=== PATIENT | male | born 1960 | race African-American/Black ===

== ENCOUNTER 2016-12-20 14:04 | Emergency (ER) | payer OTHER ==
[~2016-12-20] VITALS: Ht 182.9 cm; Wt 83.9 kg
[2016-12-20 14:48] VITALS: BP 147/93
[2016-12-20] MEDS ORDERED: HYDR-4452 PO (14:52)
--- NOTE | 2016-12-20 15:15 | NUR ---
PATIENT LEFT WITHOUT BEING SEEN BY DR. ALSTON. NO FURTHER CARE PROVIDED FOR PATIENT.
== END 2016-12-20 15:15 | disposition left against medical advice (07) ==
LOC: MED 14:04
DX: R11.10 Vomiting, unspecified (principal); Z53.21 Procedure and treatment not carried out due to patient leaving prior to being seen by health care provider

== ENCOUNTER 2022-12-06 16:49 | Inpatient (IN) | payer OTHER ==
[~2022-12-06] VITALS: Ht 177.8 cm; Wt 74.4 kg
[~2022-12-06 16:49] MED LIST: HYDR-5191 PO
[2022-12-06 16:57] VITALS: BP 145/90; PULSE 79; RESP 18; TEMP 97.4; O2SAT 97
[2022-12-06] MEDS ORDERED: NACL 0.9% 1,000 ML IV SCH (17:10)
[2022-12-06] MEDS ORDERED: ONDANSETRON 4 MG/2 ML VIAL IVP ONE ×2 (17:15→20:10)
--- NOTE | 2022-12-06 17:17 | NUR ---
FARZANA/ FLU SWABS SENT
--- NOTE | 2022-12-06 17:30 | NUR ---
62YO M PRESENTS N,V,D SINCE THIS AM, PT STATES HE'S DETOXING FROM [facility] SINCE YESTERDAY. AOX4, SAFETY MAINTAINED. HX:HTN NKA
[2022-12-06] MEDS ORDERED: buprenorphine HCL 2 MG sublingual tab SL ONE ×2 (18:20→20:10)
[2022-12-06 18:34] LABS: BASOPHILS % (AUTO) 0.6 % (0.0-2.0); EOSINOPHILS % (AUTO) 0.1 % (0.0-4.0); HEMATOCRIT 46.4 % (36-52); HEMOGLOBIN 15.6 g/dL (12.0-18.0); LYMPHOCYTES # (AUTO) 1.6 K/uL (2.0-11.5); LYMPHOCYTES % (AUTO) 21.7 % (20.5-51.1); MEAN CORPUSCULAR HEMOGLOBIN 31 pg (27-31); MEAN CORPUSCULAR HGB CONC 34 g/dL (33-37); MEAN CORPUSCULAR VOLUME 90.8 fL (80-94); MONOCYTES # (AUTO) 0.5 K/uL (0.8-1.0); MONOCYTES % (AUTO) 7.3 % (1.7-9.3); NEUTROPHILS # (AUTO) 5.3 K/uL (1.8-7.7); NEUTROPHILS % (AUTO) 70.3 % (42.2-75.2); PLATELET COUNT (AUTO) 229 K/uL (140-450); RED BLOOD CELL COUNT(AUTO) 5.11 MIL/uL (4.20-6.10); RED CELL DISTRIBUTION WIDTH 13.3 % (11.6-13.7); WHITE BLOOD COUNT (AUTO) 7.5 K/uL (4.8-10.8)
[2022-12-06 18:47] LABS: ANION GAP 17.6 (8-16); CARBON DIOXIDE 24.8 mmol/L (21-32); POTASSIUM 3.4 mmol/L (3.5-5.1); TOTAL BILIRUBIN 1.1 mg/dL (0.0-1.0)
[2022-12-06 18:54] LABS: ACETAMINOPHEN < 0.5 ug/ml (10-30); LIPASE 45 U/L (73-393)
--- NOTE | 2022-12-06 19:14 | NUR ---
SPOKE TO DAUGHTER , SHE WILL COME VISTI PT LATER.
--- NOTE | 2022-12-06 19:18 | NUR ---
13YO F BIB MOTHER, PRESENTS W/ABSCESS TO LT BUTTOCKS X 4 DAYS. SMALL PUNCTURES NOTED W/CLEAR DRAINAGE, NO DISTRESS NOTED, PT DENIES FEVER, N,V,D CHILLS, WEAKNESS. AOX4, SAFETY MAINTAINED. NKA
--- NOTE | 2022-12-06 19:25 | NUR ---
pt. resting on bed, not in distress, A/oX4
[2022-12-06] MEDS ORDERED: NACL 0.9% 1,000 ML IV ONE (20:10)
--- NOTE | 2022-12-06 20:10 | NUR ---
dr. montez examined thee patient
--- NOTE | 2022-12-06 20:11 | NUR ---
pt vomitted. placed on high back rest. provided vomiting bag. dr. Pugh made aware
--- NOTE | 2022-12-06 20:12 | NUR ---
Attempted to collect urine again, pt stated he is unable to pee at this time and c/o nausea vomiting. ERMD aware and orders were received.
--- NOTE | 2022-12-06 20:37 | NUR ---
Urine collected sent to lab
[2022-12-06] MEDS ORDERED: METOCLOPRAMIDE 10 MG/2 ML INJ VIAL IVP ONE (20:50)
[2022-12-06] MEDS ORDERED: diphenhydrAMINE 50 MG/ML VIAL IVP ONE ×3 (20:50→21:40)
--- NOTE | 2022-12-06 21:00 | NUR ---
pt seen restless. dr. Pugh made aware
[2022-12-06 21:17] LABS: BARBITURATE, URINE NEGATIVE ng/ml (NEG <=200)
[2022-12-06 21:18] LABS: BENZODIAZEPINE, URINE NEGATIVE ng/mL (NEG <=200); BILIRUBIN,URINE 2+ (NEGATIVE); BLOOD, URINE NEGATIVE (NEGATIVE); CANNABINOID, URINE POSITIVE ng/mL (NEG <=50); COCAINE, URINE NEGATIVE ng/mL (NEG <=300); COLOR,URINE YELLOW (YELLOW); LEUKOCYTE ESTERASE ,URINE TRACE (NEGATIVE); NITRITE, URINE NEGATIVE (NEGATIVE); OPIATE, URINE POSITIVE ng/mL (NEG <=2000); PH,URINE 6.5 (5.0-9.0); PHENCYCLIDINE SCREEN,URINE NEGATIVE ng/mL (NEG <=25); UGLUCOSE NEGATIVE (NEGATIVE)
[2022-12-06 21:19] LABS: APPEARANCE,URINE CLOUDY (CLEAR)
--- NOTE | 2022-12-06 21:29 | NUR ---
GAYATHRI [phone] CALLED REQUESTING UPDATE
[2022-12-06 21:33] LABS: RBC,URINE 0-5 /HPF (0-5)
--- NOTE | 2022-12-06 21:34 | NUR ---
Pt noted restless and stated they are feeling anxious. ERMD made aware orders received.
[2022-12-06] MEDS ORDERED: LORazepam 2 MG/ML VIAL IVP ONE (21:35)
--- NOTE | 2022-12-06 22:04 | NUR ---
resting on bed. on monitor
[2022-12-06] MEDS ORDERED: LISI-486 PO (22:17)
[2022-12-06] MEDS ORDERED: cefTRIAXone 2,000 MG in DEXTROSE 5% 100 ML IV ONE (22:20)
--- NOTE | 2022-12-06 23:07 | NUR ---
Per patient request, daughter , was made aware of patients admission.
[2022-12-06] MEDS ORDERED: cefTRIAXone 2,000 MG VIAL ONE (23:39)
[2022-12-07] MEDS ORDERED: ONDANSETRON 4 MG/2 ML VIAL IVP PRN (00:15)
[2022-12-07] MEDS ORDERED: MORPHINE SULFATE 2 MG/ML SYR IVP PRN (00:15)
[2022-12-07] MEDS ORDERED: LORazepam 2 MG/ML VIAL IVP PRN (00:15)
[2022-12-07] MEDS ORDERED: ACETAMINOPHEN 325 MG TAB PO PRN (00:15)
[2022-12-07] MEDS: NACL 0.9% 1,000 ML IV SCH ×3 (01:10→22:00)
--- NOTE | 2022-12-07 01:24 | NUR ---
resting on bed. not in distress, on monitor
--- NOTE | 2022-12-07 07:24 | NUR ---
Pt report given to Galina GARSIA. Galina GARSIA verbalized understanding and no further question. . Transfer of care at this time.
--- NOTE | 2022-12-07 07:24 | NUR ---
REPORT RECEIVED FROM DANUTA PALAFOX.
[2022-12-07 07:44] VITALS: O2SAT 95
--- NOTE | 2022-12-07 07:48 | NUR ---
PT SLEEPING, BED ASSIGNMENT RECEIVED-120B MED/SURG.
--- NOTE | 2022-12-07 07:55 | NUR ---
REPORT GIVEN TO FERCHO PINEDA RN FOR MED/SURG 120B
[2022-12-07] MEDS ORDERED: MAG SULF 2000 MG/WATER PREMIX 50 ML IV PRN (08:15)
[2022-12-07] MEDS ORDERED: MAGNESIUM OXIDE 400 MG TAB PO PRN (08:15)
[2022-12-07] MEDS ORDERED: POTASSIUM CHLORIDE 10 MEQ TABER PO PRN (08:15)
--- NOTE | 2022-12-07 08:15 | NUR ---
Patient will be admitted to care of GLADYS IVAN MD. Admited to MED/SURG. Will go to room 120B. Belongings list completed. Report to FERCHO PINEDA RN.
[2022-12-07 08:17] VITALS: PULSE 60; RESP 15; O2SAT 95
--- NOTE | 2022-12-07 08:31 | NUR ---
The patient's care was reviewed and supervised by Jenkins 04 ED, RN.
[2022-12-07 08:48] LABS: BASOPHILS % (AUTO) 0.3 % (0.0-2.0); HEMATOCRIT 40.7 % (36-52); HEMOGLOBIN 13.6 g/dL (12.0-18.0); LYMPHOCYTES # (AUTO) 1.5 K/uL (2.0-11.5); LYMPHOCYTES % (AUTO) 17.1 % (20.5-51.1); MEAN CORPUSCULAR HEMOGLOBIN 30 pg (27-31); MEAN CORPUSCULAR HGB CONC 33 g/dL (33-37); MEAN CORPUSCULAR VOLUME 90.9 fL (80-94); MONOCYTES # (AUTO) 0.6 K/uL (0.8-1.0); MONOCYTES % (AUTO) 6.8 % (1.7-9.3); NEUTROPHILS # (AUTO) 6.5 K/uL (1.8-7.7); NEUTROPHILS % (AUTO) 75.8 % (42.2-75.2); PLATELET COUNT (AUTO) 192 K/uL (140-450); RED BLOOD CELL COUNT(AUTO) 4.48 MIL/uL (4.20-6.10); RED CELL DISTRIBUTION WIDTH 13.2 % (11.6-13.7); WHITE BLOOD COUNT (AUTO) 8.6 K/uL (4.8-10.8)
[2022-12-07 09:04] LABS: ALBUMIN 3.4 g/dL (3.4-5.0); ANION GAP 10.5 (8-16); CARBON DIOXIDE 29.2 mmol/L (21-32); CREATININE 0.7 mg/dL (0.6-1.3); POTASSIUM 3.7 mmol/L (3.5-5.1); TOTAL BILIRUBIN 0.6 mg/dL (0.0-1.0)
--- NOTE | 2022-12-07 10:21 | NUR ---
PATIENT HAS BEEN SCREENED AND CATEGORIZED LOW NUTRITION RISK. PATIENT WILL BE SEEN WITHIN 7 DAYS OF ADMISSION. 12/14/[address]
[2022-12-07] MEDS: lisinopriL 10 MG TAB PO SCH (10:32)
--- NOTE | 2022-12-07 11:27 | NUR ---
DC [age]ANN[age] YRS OLD MALE PATIENT WAS ADMITTED FROM HOME WITH A DX OF UTI AND POLYSUBSTANCE ABUSE. PATIENT HAS A HX OF DRUG USE AND HTN. CXR SHOWED BIBASILAR INTERSTITIAL INFILTRATES, UA +3. CXR NORMAL. CT ABD ABDOMINAL US SHOWED ECHOGENIC GALLSTONES AND SLUDGE NOTED IN THE GALLBLADDER . RAPID COVID TEST NEGATIVE. ADMINISTERED IVF, IV ABX ROCEPHIN. DC PLAN TO GO HOME WHEN STABLE. CM TO FOLLOW Addendum: 12/08/22 at 1125 by YANIV ROMERO CM CALLED DR HARJEET GILLIAM'S OFFICE LOCATED AT [facility] [address] [id number]. SPOKE WITH CESARIO WHO WAS ABLE TO HELP ME SCHEDULE A FOLLOW UP APPOINTMENT FOR 12/11/2022. WENT TO BEDSIDE TO GIVE PATIENT INFORMATION BUT PATIENT WAS ASLEEP BUT I INDORSED INFORMATION TO NURSE JANE WHO WAS ALSO GIVE AN APPOINTMENT SLIP TO GIVE TO PATIENT WITH ALL INFO ON IT. [facility] TRANSPORT NUMBER WAS ALSO PLACE ON APPOINTMENT SLIP.
--- NOTE | 2022-12-07 12:12 | NUR ---
Spoke with mother, Sendy Jose, this afternoon via telephone. She advised that the patient has participated in mental health services in the past, however he stopped attending because he felt like he didn't need services. Per mother, the had refered him to treatment to "help relax him". The mother states the patient has had a lot and trauma within his life and she could understand why he was in therapy. At this time, the patient is not receiving mental health services, and the focus is to work on his sobriety. The mother was provided resources related to mental health as well.
[2022-12-07 16:00] VITALS: BP 118/50; PULSE 55; RESP 16; TEMP 99; O2SAT 91
--- NOTE | 2022-12-07 18:30 | NUR ---
AROUND 1814, PT SMOKED CIGARETTE, INFORMED HIM THAT IT IS NOT ALLOWED AND WILL HAVE TO CONFISCATE THE CIGARETTE AND CURTAIN FRAMER UNTIL HE IS DISCHARGED. YOHANA OF SECURITY TOOK THE ITEMS FOR SAFE KEEPING. WILL ENDORSE TO NEXT SHIFT.
--- NOTE | 2022-12-07 19:14 | NUR ---
ENDORSED PT TO PEDIATRIC NEPHROLOGIST NURSE FOR CONTINUITY OF CARE. PT IS STABLE, CALL LIGHT WITHIN REACH.
--- NOTE | 2022-12-07 19:15 | NUR ---
RECEIVED REPORT FROM JEFF PALAFOX, PATIENT WAS STABLE DURING SHIFT REPORT. PATIENT IV TO LEFT FOREARM WAS INFILTRATED AND BROUGHT TO AM NURSE ATTENTION. PATIENT IN BED SLEEPING BUT RESPOND WHEN NAME IS CALLED. PATIENT DENIES ANY PAIN/DISCOMFORT AT THIS TIME. DID NOT EAT ANY OF HIS DINNER BUT REQUEST THAT TRAY NOT BE REMOVED TO ATTEMPT TO EAT LATER. PATIENT IS ABLE TO USE URINAL AND URINE COLOR NOTED DARK STRAW. SIDE RAILS UP X 2 CALL LIGHT WITHIN REACH. [email or web address]
[2022-12-07 20:00] VITALS: BP 134/67; PULSE 65; RESP 17; TEMP 98.6; O2SAT 94
[2022-12-07] MEDS: NICOTINE TRANSD SYS 14 MG/24 HR PATCH TD SCH (21:34)
--- NOTE | 2022-12-07 21:45 | NUR ---
STARTED NEW IV ON RIGHT ON AND ON FIRST ATTEMPT BY RESOURCE NURSE. [email or web address]
--- NOTE | 2022-12-08 01:50 | NUR ---
SPOKE WITH PATIENT MOTHER ABOUT VISITING HOURS AND GENERAL INFORMING TO HIS CARE. PATIENT WILL BE NOTIFIED OR HER CALL IN THE AM. [id number]
--- NOTE | 2022-12-08 03:45 | NUR ---
PATIENT WAS NOTED IN BED ASLEEP WITHOUT INCIDENT. AL NEEDS MET AT THIS TIME. NO S/S OF PAIN/DISCOMFORT. NO NOTED RESPIRATORY DISTRESS. SIDE RAILS UP X2 FOR SAFETY AND COMFORT. [email or web address]
[2022-12-08 04:00] VITALS: BP 138/61; PULSE 52; RESP 19; TEMP 98.6; O2SAT 95
[2022-12-08 05:26] LABS: BASOPHILS % (AUTO) 0.5 % (0.0-2.0); EOSINOPHILS % (AUTO) 0.1 % (0.0-4.0); HEMATOCRIT 40.8 % (36-52); HEMOGLOBIN 13.5 g/dL (12.0-18.0); LYMPHOCYTES # (AUTO) 2.3 K/uL (2.0-11.5); LYMPHOCYTES % (AUTO) 23.5 % (20.5-51.1); MEAN CORPUSCULAR HEMOGLOBIN 30 pg (27-31); MEAN CORPUSCULAR HGB CONC 33 g/dL (33-37); MEAN CORPUSCULAR VOLUME 91.1 fL (80-94); MONOCYTES # (AUTO) 0.8 K/uL (0.8-1.0); MONOCYTES % (AUTO) 8.4 % (1.7-9.3); NEUTROPHILS # (AUTO) 6.5 K/uL (1.8-7.7); NEUTROPHILS % (AUTO) 67.5 % (42.2-75.2); PLATELET COUNT (AUTO) 182 K/uL (140-450); RED BLOOD CELL COUNT(AUTO) 4.48 MIL/uL (4.20-6.10); RED CELL DISTRIBUTION WIDTH 13.4 % (11.6-13.7); WHITE BLOOD COUNT (AUTO) 9.7 K/uL (4.8-10.8)
[2022-12-08 05:27] LABS: ANION GAP 13.7 (8-16); CARBON DIOXIDE 26.2 mmol/L (21-32); CREATININE 0.8 mg/dL (0.6-1.3)
[2022-12-08 05:31] LABS: POTASSIUM 2.9 mmol/L (3.5-5.1)
--- NOTE | 2022-12-08 05:35 | NUR ---
LAB ([facility]) CALLED FOR PATIENT LAB LEVELS NOTED AT 2.9 FOR POTASSIUM. COVERING RN WAS NOTIFIED BECAUSE STANDING ORDER FOR K RIDER IS ABLE. [email or web address]
[2022-12-08] MEDS: NACL 0.9% 1,000 ML IV SCH ×2 (06:15→16:15)
[2022-12-08] MEDS: KCL 20 MEQ IN 100 mL PREMIX 200 ML IV PRN ×2 (06:19→10:27)
--- NOTE | 2022-12-08 07:04 | NUR ---
ENDORSED CONTINUITY OF CARE TO LUCINDA GARSIA, PATIENT WAS STABLE DURING CHANGE OF SHIFT. [email or web address]
--- NOTE | 2022-12-08 07:05 | NUR ---
ASSUMED CONTINUITY OF CARE. INITIAL ASSESSMENT DONE. KEEP COMFORTABLE ON BED. CALL LIGHT WITHIN REACH.
[2022-12-08 08:00] VITALS: BP 154/72; PULSE 52; RESP 17; TEMP 98.3; O2SAT 97
[2022-12-08] MEDS: lisinopriL 10 MG TAB PO SCH (08:39)
[2022-12-08] MEDS ORDERED: POTASSIUM CHLORIDE 10 MEQ TABER PO SCH ×2 (08:40→14:00)
[2022-12-08] MEDS: NICOTINE TRANSD SYS 14 MG/24 HR PATCH TD SCH (08:41)
[2022-12-08] MEDS ORDERED: NITR100C7 PO (09:31)
--- NOTE | 2022-12-08 09:31 | NUR ---
DR. SANTOS CAME AND SAID THAT PT. CAN BE D/C IF K > 3.2, REPEAT LAB AT 1600, MAG-OX 400 MG PO X1 FOR LOW MAG 1.6. INFORMED CHARGE NURSE KORINA -JAVY.
[2022-12-08] MEDS ORDERED: MAGNESIUM OXIDE 400 MG TAB PO SCH (09:36)
[2022-12-08 17:15] LABS: ANION GAP 13.1 (8-16); CARBON DIOXIDE 24.6 mmol/L (21-32); CREATININE 0.7 mg/dL (0.6-1.3); POTASSIUM 3.7 mmol/L (3.5-5.1)
--- NOTE | 2022-12-08 18:15 | NUR ---
PT. SAID THAT CELLPHONE (OBAMA PHONE) WAS LEFT IN RADIOLOGY DEPARTMENT ON 12/06/22 AFTER GALLBLADDER US. CALLED GLADYS FROM RADIOLOGY DEPARTMENT AND CHECKED PT. CELLPHONE. PER GLADYS NO CELLPHONE FOUND OR ANY CELLPHONE THAT WAS LEFT BY PT.. BILINGUAL SPEECH THERAPIST TANESHA SPOKE TO PT. AND FAMILY MEMBERS AND ASKED PT. INFORMATION TO CALL JUST IN CASE CELLPHONE FOUND AFTER PT. D/C. PT. INFORMATION AND CONTACT NUMBER WAS GIVEN TO BILINGUAL SPEECH THERAPIST TANESHA.
--- NOTE | 2022-12-08 19:26 | NUR ---
REPORT GIVEN TO SORIN SUAZO IN STABLE CONDITION. ALSO ENDORSED ABOUT PT. D/C.
--- NOTE | 2022-12-08 19:30 | NUR ---
RECEIVED REPORT FROM DAY SHIFT NURSE LUCINDA FOR CONTINUITY OF CARE. PATIENT IS A&O X4. PATIENT IS ON ROOM AIR, BREATHING IS NORMAL WITH SYMMETRICAL RISE AND FALL OF CHEST. PATIENT IS PENDING D/C PICKUP FROM SISTER; IV WAS REMOVED BY DAY SHIFT NURSE. PATIENT IS SLEEPING IN BED, LYING SUPINE; WAITING FOR PICKUP.
--- NOTE | 2022-12-08 20:00 | NUR ---
PATIENT'S SISTER CALLED AND STATED SHE WOULD BE THEIR TO PICKUP PATIENT IN 5 MINUTES. WOKE PATIENT UP AND INFORMED HIM THAT HIS SISTER WAS ON HER WAY. PLACED PATIENT IN WHEELCHAIR AND GAVE HIM HIS CIGARETTES, [employer] ARCHITECT, TWO CANES (BROWN CANE AND BLACK CANE), AND D/C PAPERWORK. WHEELED PATIENT TO [place] AND WAITED FOR SISTER TO ARRIVE. ONCE SISTER ARRIVED, ASSISTED PATIENT OUT OF CHAIR AND INTO CAR. PATIENT LEFT WITH SISTER AT 1950 AND IS NOW D/C.
== END 2022-12-08 19:50 | disposition home or self-care (01) | DRG 463 ==
LOC: MED 16:49 → MMU 12-07 00:18 → MTU 12-07 00:18 → OBSVTOIN 12-07 01:44 → MMU 12-07 01:44 → MTU 12-07 08:26
PROVIDERS: ADMIT Hospitalist; ATTEND Hospitalist
DX: N39.0 Urinary tract infection, site not specified (principal); G25.71 Drug induced akathisia; E87.6 Hypokalemia; K80.20 Calculus of gallbladder without cholecystitis without obstruction; F11.13 Opioid abuse with withdrawal; I10 Essential (primary) hypertension; F17.200 Nicotine dependence, unspecified, uncomplicated; Z20.822 Contact with and (suspected) exposure to COVID-19
CPT/HCPCS: 36415; 71045; 76705; 80048; 80053; 80305; 81001; 83690; 83735; 83880; 84484; 85025; 87040; 87081; 87086; 93005; 96361; 96365; 96375; 96376; 99285; G0480; G0482; J0696; J1200; J2060; J2405; J2765; J3480; J7060; Q0092

== ENCOUNTER 2023-04-25 13:01 | Emergency (ER) | payer OTHER ==
[~2023-04-25] VITALS: Ht 182.9 cm; Wt 79.4 kg
[~2023-04-25 13:01] MED LIST changes: -HYDR-5191 PO; +LISI-486 PO; +NITR100C7 PO
[2023-04-25 13:05] VITALS: BP 138/88; PULSE 70; RESP 20; TEMP 98; O2SAT 95
[2023-04-25 13:18] VITALS: BP 130/84; PULSE 66; RESP 20; TEMP 98; O2SAT 99
[2023-04-25] MEDS ORDERED: NACL 0.9% 1,000 ML IV ONE (13:25)
[2023-04-25] MEDS ORDERED: ONDA8TAB87 PO (14:05)
[2023-04-25] MEDS ORDERED: ONDANSETRON 4 MG/2 ML VIAL IVP ONE (14:05)
== END 2023-04-25 14:39 | disposition home or self-care (01) ==
LOC: MED 13:01
DX: T50.994A Poisoning by other drugs, medicaments and biological substances, undetermined, initial encounter (principal); R00.2 Palpitations; R42 Dizziness and giddiness; I10 Essential (primary) hypertension; F17.200 Nicotine dependence, unspecified, uncomplicated; F12.90 Cannabis use, unspecified, uncomplicated; Z98.890 Other specified postprocedural states; Z79.899 Other long term (current) drug therapy; Z79.2 Long term (current) use of antibiotics; Y92.89 Other specified places as the place of occurrence of the external cause
CPT/HCPCS: 93005; 96361; 96374; 99283; J2405

== ENCOUNTER 2023-04-29 18:15 | Inpatient (IN) | payer OTHER ==
[~2023-04-29] VITALS: Ht 182.9 cm; Wt 79.4 kg
[~2023-04-29 18:15] MED LIST changes: +ONDA8TAB87 PO
[2023-04-29 18:20] VITALS: BP 139/80; PULSE 65; RESP 16; O2SAT 97
[2023-04-29 19:41] VITALS: O2SAT 97
[2023-04-29 19:55] LABS: BASOPHILS % (AUTO) 0.2 % (0.0-2.0); EOSINOPHILS % (AUTO) 0.2 % (0.0-4.0); HEMATOCRIT 44.5 % (36-52); HEMOGLOBIN 15.1 g/dL (12.0-18.0); LYMPHOCYTES # (AUTO) 2.3 K/uL (2.0-11.5); LYMPHOCYTES % (AUTO) 21.3 % (20.5-51.1); MEAN CORPUSCULAR HEMOGLOBIN 31 pg (27-31); MEAN CORPUSCULAR HGB CONC 34 g/dL (33-37); MONOCYTES # (AUTO) 1.1 K/uL (0.8-1.0); MONOCYTES % (AUTO) 10.4 % (1.7-9.3); NEUTROPHILS # (AUTO) 7.4 K/uL (1.8-7.7); NEUTROPHILS % (AUTO) 67.9 % (42.2-75.2); PLATELET COUNT (AUTO) 215 K/uL (140-450); RED BLOOD CELL COUNT(AUTO) 4.95 MIL/uL (4.20-6.10); RED CELL DISTRIBUTION WIDTH 12.6 % (11.6-13.7); WHITE BLOOD COUNT (AUTO) 10.9 K/uL (4.8-10.8)
[2023-04-29 20:16] LABS: ALANINE AMINOTRANSFERASE 31 U/L (12-78); ALBUMIN 3.5 g/dL (3.4-5.0); ALKALINE PHOSPHATASE 63 U/L (50-136); ANION GAP 10.3 (8-16); ASPARTATE AMINOTRANSFERASE 28 U/L (15-37); CALCIUM 8.5 mg/dL (8.5-10.1); CARBON DIOXIDE 30.7 mmol/L (21-32); CHLORIDE 96 mmol/L (98-107); CREATININE 0.9 mg/dL (0.6-1.3); GFR ARICAN-AMERICAN 110 mL/min (>90); GFR NON ARICAN-AMERICAN 91 mL/min (>90); GLUCOSE 94 mg/dL (74-106); LIPASE 101 U/L (16-77); SODIUM SERUM 135 mmol/L (136-145); TOTAL BILIRUBIN 0.9 mg/dL (0.0-1.0); TOTAL PROTEIN, SERUM 6.9 g/dL (6.4-8.2); UREA NITROGEN, BLOOD 10 mg/dL (7-18)
[2023-04-29] MEDS ORDERED: LACTATED RINGERS 1,000 ML IV STA (20:26)
[2023-04-29] MEDS ORDERED: KCL 20 MEQ IN 100 mL PREMIX 200 ML IV ONE (20:30)
[2023-04-29] MEDS ORDERED: MAG SULF 2000 MG/WATER PREMIX 50 ML IV ONE (20:30)
[2023-04-29] MEDS ORDERED: POTASSIUM CHLORIDE 20% 40 MEQ/15 ML UDC PO ONE ×2 (20:30)
[2023-04-29] MEDS ORDERED: METOCLOPRAMIDE 10 MG/2 ML INJ VIAL IVP ONE (20:45)
[2023-04-29] MEDS ORDERED: POTASSIUM CHLORIDE 10 MEQ TABER PO ONE (21:00)
[2023-04-29 21:46] LABS: FLU A ANTIGEN negative (NEGATIVE); FLU B ANTIGEN negative (NEGATIVE)
[2023-04-29] MEDS ORDERED: MAGNESIUM OXIDE 400 MG TAB PO PRN (22:05)
[2023-04-29] MEDS ORDERED: LORazepam 1 MG TAB PO PRN (22:05)
[2023-04-29] MEDS ORDERED: ACETAMINOPHEN 325 MG TAB PO PRN (22:05)
[2023-04-29] MEDS ORDERED: MAG SULF 2000 MG/WATER PREMIX 50 ML IV PRN (22:05)
[2023-04-29] MEDS ORDERED: ZOLPIDEM 5 MG TAB PO PRN (22:05)
[2023-04-29] MEDS ORDERED: KCL 20 MEQ IN 100 mL PREMIX 200 ML IV PRN (22:05)
[2023-04-29] MEDS ORDERED: ONDANSETRON 4 MG/2 ML VIAL IVP PRN (22:05)
[2023-04-29] MEDS ORDERED: POTASSIUM CHLORIDE 10 MEQ TABER PO PRN (22:05)
[2023-04-29] MEDS ORDERED: ONDA-188 SL (23:03)
[2023-04-29] MEDS: POTASSIUM CHL 20 MEQ/NACL 0.9% 1,000 ML IV SCH (23:55)
[2023-04-29 23:58] LABS: ANION GAP 9.7 (8-16); CALCIUM 8.3 mg/dL (8.5-10.1); CARBON DIOXIDE 30.2 mmol/L (21-32); CREATININE 0.9 mg/dL (0.6-1.3)
[2023-04-30] VITALS (7 sets, daily range): BP systolic 125–157; BP diastolic 47–75; PULSE 49–60; RESP 18–19; TEMP 99.1–99.9; O2SAT 94–99
[2023-04-30 00:01] LABS: POTASSIUM 2.9 mmol/L (3.5-5.1)
[2023-04-30] MEDS: HYDROcodone/APAP 5/325 MG 1 TAB TAB PO PRN ×2 (03:26→14:13)
[2023-04-30 06:49] LABS: BASOPHILS % (AUTO) 0.4 % (0.0-2.0); EOSINOPHILS % (AUTO) 0.2 % (0.0-4.0); HEMATOCRIT 42.5 % (36-52); HEMOGLOBIN 14.6 g/dL (12.0-18.0); LYMPHOCYTES # (AUTO) 2.1 K/uL (2.0-11.5); MEAN CORPUSCULAR HEMOGLOBIN 31 pg (27-31); MEAN CORPUSCULAR HGB CONC 34 g/dL (33-37); MEAN CORPUSCULAR VOLUME 90.1 fL (80-94); MONOCYTES % (AUTO) 9.9 % (1.7-9.3); NEUTROPHILS # (AUTO) 7.2 K/uL (1.8-7.7); NEUTROPHILS % (AUTO) 69.5 % (42.2-75.2); PLATELET COUNT (AUTO) 208 K/uL (140-450); RED BLOOD CELL COUNT(AUTO) 4.72 MIL/uL (4.20-6.10); RED CELL DISTRIBUTION WIDTH 12.6 % (11.6-13.7); WHITE BLOOD COUNT (AUTO) 10.4 K/uL (4.8-10.8)
[2023-04-30 07:52] LABS: ALBUMIN 3.2 g/dL (3.4-5.0); CALCIUM 8.2 mg/dL (8.5-10.1); CARBON DIOXIDE 26.4 mmol/L (21-32); CREATININE 0.8 mg/dL (0.6-1.3); PHOSPHORUS 2.5 mg/dL (2.5-4.9); POTASSIUM 3.4 mmol/L (3.5-5.1); TOTAL PROTEIN, SERUM 6.5 g/dL (6.4-8.2)
[2023-04-30] MEDS: ENOXAPARIN 40 MG/0.4 ML SYR SUBQ SCH (09:21)
[2023-04-30] MEDS: DOCUSATE SODIUM 100 MG GELCAP PO SCH (09:25)
[2023-04-30] MEDS ORDERED: LOPERAMIDE 2 MG CAP PO PRN (11:00)
[2023-04-30] MEDS: POTASSIUM CHL 20 MEQ/NACL 0.9% 1,000 ML IV SCH (22:10)
[2023-05-01] VITALS: BP 105/53; PULSE 57; PULSE 60; RESP 18; TEMP 98.6; O2SAT 95
[2023-05-01 04:00] VITALS: BP 111/55; PULSE 62; RESP 18; TEMP 99.1; O2SAT 93
[2023-05-01 06:52] LABS: BASOPHILS % (AUTO) 0.5 % (0.0-2.0); EOSINOPHILS # (AUTO) 0.1 K/uL (0-0.4); EOSINOPHILS % (AUTO) 0.6 % (0.0-4.0); HEMATOCRIT 41.6 % (36-52); HEMOGLOBIN 13.9 g/dL (12.0-18.0); LYMPHOCYTES # (AUTO) 2.1 K/uL (2.0-11.5); LYMPHOCYTES % (AUTO) 22.2 % (20.5-51.1); MEAN CORPUSCULAR HEMOGLOBIN 30 pg (27-31); MEAN CORPUSCULAR HGB CONC 33 g/dL (33-37); MEAN CORPUSCULAR VOLUME 90.7 fL (80-94); MONOCYTES # (AUTO) 0.7 K/uL (0.8-1.0); MONOCYTES % (AUTO) 7.8 % (1.7-9.3); NEUTROPHILS # (AUTO) 6.5 K/uL (1.8-7.7); NEUTROPHILS % (AUTO) 68.9 % (42.2-75.2); PLATELET COUNT (AUTO) 203 K/uL (140-450); RED BLOOD CELL COUNT(AUTO) 4.58 MIL/uL (4.20-6.10); RED CELL DISTRIBUTION WIDTH 12.7 % (11.6-13.7); WHITE BLOOD COUNT (AUTO) 9.5 K/uL (4.8-10.8)
[2023-05-01 07:16] LABS: ANION GAP 9.6 (8-16); CALCIUM 7.8 mg/dL (8.5-10.1); CARBON DIOXIDE 28.5 mmol/L (21-32); CREATININE 0.8 mg/dL (0.6-1.3); POTASSIUM 3.1 mmol/L (3.5-5.1); TOTAL BILIRUBIN 0.8 mg/dL (0.0-1.0); TOTAL PROTEIN, SERUM 6.1 g/dL (6.4-8.2)
[2023-05-01 08:00] VITALS: BP 107/55; PULSE 55; PULSE 56; RESP 18; TEMP 99.2; O2SAT 93; O2SAT 98
[2023-05-01] MEDS: DOCUSATE SODIUM 100 MG GELCAP PO SCH (08:26)
[2023-05-01] MEDS: ENOXAPARIN 40 MG/0.4 ML SYR SUBQ SCH (08:30)
[2023-05-01 12:24] VITALS: PULSE 58
[2023-05-01 12:25] VITALS: BP 137/73; PULSE 57; RESP 18; TEMP 99.2; O2SAT 98
[2023-05-01] MEDS: POTASSIUM CHL 20 MEQ/NACL 0.9% 1,000 ML IV SCH (12:46)
[2023-05-01] MEDS ORDERED: IMO2 PO (13:01)
[2023-05-01] MEDS ORDERED: ONDA-188 PO (13:02)
[2023-05-01 14:10] VITALS: BP 137/73; PULSE 57; RESP 18; TEMP 99.2
== END 2023-05-01 14:45 | disposition home or self-care (01) | DRG 249 ==
LOC: MED 18:15 → MMU 22:04 → MIC 04-30 05:53 → MMU 04-30 05:53 → MTU 04-30 14:07
PROVIDERS: ADMIT Student in an Organized Health Care Education/Training Program; ATTEND Student in an Organized Health Care Education/Training Program
DX: K52.9 Noninfective gastroenteritis and colitis, unspecified (principal); D72.829 Elevated white blood cell count, unspecified; E87.6 Hypokalemia; E86.0 Dehydration; E86.1 Hypovolemia; F11.90 Opioid use, unspecified, uncomplicated; I10 Essential (primary) hypertension; Z20.822 Contact with and (suspected) exposure to COVID-19
CPT/HCPCS: 36415; 71045; 80048; 80053; 83690; 83735; 84100; 84484; 85025; 93005; 96374; 99291; J1650; J3475; J3480; J7030; Q0092

== ENCOUNTER 2023-05-10 10:20 | Emergency (ER) | payer OTHER ==
[~2023-05-10] VITALS: Ht 182.9 cm; Wt 79.4 kg
[~2023-05-10 10:20] MED LIST changes: +IMO2 PO; -NITR100C7 PO; +ONDA-188 PO; -ONDA8TAB87 PO
[2023-05-10 10:25] VITALS: BP 112/72; PULSE 70; RESP 14; TEMP 99; O2SAT 94
[2023-05-10] MEDS ORDERED: MORPHINE SULFATE 4 MG/ML SYR IVP ONE (11:15)
[2023-05-10] MEDS ORDERED: NACL 0.9% 1,000 ML IV SCH (11:15)
[2023-05-10] MEDS ORDERED: ONDANSETRON 4 MG/2 ML VIAL IVP ONE (11:15)
[2023-05-10 11:51] VITALS: O2SAT 94
[2023-05-10 11:55] LABS: BASOPHILS # (AUTO) 0.1 K/uL (0.00-0.22); BASOPHILS % (AUTO) 1.4 % (0.0-2.0); EOSINOPHILS % (AUTO) 0.1 % (0.0-4.0); HEMATOCRIT 42.4 % (36-52); HEMOGLOBIN 14.4 g/dL (12.0-18.0); LYMPHOCYTES # (AUTO) 0.8 K/uL (2.0-11.5); LYMPHOCYTES % (AUTO) 21.3 % (20.5-51.1); MEAN CORPUSCULAR HEMOGLOBIN 31 pg (27-31); MEAN CORPUSCULAR HGB CONC 34 g/dL (33-37); MEAN CORPUSCULAR VOLUME 89.7 fL (80-94); MONOCYTES # (AUTO) 0.4 K/uL (0.8-1.0); MONOCYTES % (AUTO) 11.5 % (1.7-9.3); NEUTROPHILS # (AUTO) 2.4 K/uL (1.8-7.7); NEUTROPHILS % (AUTO) 65.7 % (42.2-75.2); PLATELET COUNT (AUTO) 163 K/uL (140-450); RED BLOOD CELL COUNT(AUTO) 4.73 MIL/uL (4.20-6.10); RED CELL DISTRIBUTION WIDTH 12.9 % (11.6-13.7); WHITE BLOOD COUNT (AUTO) 3.7 K/uL (4.8-10.8)
[2023-05-10 12:04] LABS: ALBUMIN 3.2 g/dL (3.4-5.0); ANION GAP 10.2 (8-16); CALCIUM 8.3 mg/dL (8.5-10.1); CARBON DIOXIDE 29.3 mmol/L (21-32); TOTAL BILIRUBIN 0.8 mg/dL (0.0-1.0); TOTAL PROTEIN, SERUM 7.5 g/dL (6.4-8.2)
[2023-05-10 12:07] LABS: POTASSIUM 2.5 mmol/L (3.5-5.1)
[2023-05-10] MEDS ORDERED: POTASSIUM CHLORIDE 10 MEQ TABER PO ONE (12:30)
[2023-05-10] MEDS ORDERED: IBUP-2213 PO (12:58)
[2023-05-10] MEDS ORDERED: CIPR500T4 PO (12:58)
[2023-05-10] MEDS ORDERED: PROM25TA27 PO (12:58)
[2023-05-10 15:44] VITALS: BP 130/89; PULSE 69; RESP 15; TEMP 98.9; O2SAT 99
== END 2023-05-10 15:24 | disposition home or self-care (01) ==
LOC: MED 10:20
DX: R10.84 Generalized abdominal pain (principal); R11.2 Nausea with vomiting, unspecified; E87.6 Hypokalemia; R19.7 Diarrhea, unspecified; I10 Essential (primary) hypertension; Z79.899 Other long term (current) drug therapy
CPT/HCPCS: 36415; 74176; 80053; 83690; 85025; 96361; 96374; 96375; 99285; J2270; J2405; J7030